=== PATIENT | male | born 1980 | race Caucasian/White ===

== ENCOUNTER → 2017-02-26 | Outpatient (CLI) | payer OTHER ==
[~2017-02-26] MED LIST: NAPR1TAB9 PO
--- NOTE | 2017-02-26 08:58 | DIAGNOSTIC IMAGING REPORT ---
CT SCAN OF THE CHEST WITHOUT IV CONTRAST CLINICAL HISTORY: Pulmonary nodule. COMPARISON STUDY: Chest x-ray dated 07/26/2016. Chest CT dated 09/08/2016. TECHNIQUE: CT scan of the thorax was performed from the thoracic inlet to the upper abdomen. Images are reviewed in the axial, sagittal, and coronal planes. IV contrast was not administered for this examination. CT DOSE: 1102.97 mGy.cm FINDINGS: Thyroid: Imaged portions of the thyroid gland are normal in size and attenuation. Thoracic aorta: The thoracic aorta is normal in caliber and demonstrates standard 3-vessel arch anatomy. Heart: The heart is normal in size and without pericardial effusion. Lungs and pleural spaces: There is no airspace consolidation or pleural effusion. A 7 mm calcification containing nodule in the left lower lobe is unchanged. The trachea and central airways are clear. Mediastinum: There is no mediastinal lymphadenopathy. Diana: Not well assessed without IV contrast. Calcified left hilar nodes suggest remote granulomatous infection. Axillae: There is no axillary lymphadenopathy. Upper abdomen: There is a small hiatal hernia. The liver is enlarged and steatotic. The spleen is enlarged measuring 14.3 cm in length. Skeletal structures: No lytic or blastic bony lesions are seen. IMPRESSION: 1. There is no airspace consolidation or pleural effusion. 2. There is unchanged appearance of a 7 mm calcification containing left lower lobe pulmonary nodule. This likely represents a granuloma, and calcification containing left hilar nodes are also noted. This is of doubtful significance if there is no cancer history. 3. No new pulmonary nodules are identified. 4. Hepatomegaly and hepatic steatosis. 5. Splenomegaly. Electronically signed by: Cornelio Leiva M.D. 02/26/2017 8:56 AM Dictated Date/Time: 02/26/2017 8:50 AM
== END | disposition home or self-care (01) ==
LOC: C.CTS 08:32
PROVIDERS: ATTEND Internal Medicine Pulmonary Disease
DX: R91.1 Solitary pulmonary nodule (principal)